=== PATIENT | female | born 1955 ===

== ENCOUNTER → 2017-01-25 | Outpatient (CLI) | payer OTHER ==
[~2017-01-25] VITALS: Ht 170.2 cm; Wt 68.0 kg
[~2017-01-25] MED LIST: HYDROCODONE-AP1 EAC6 PO; PROGESTERONE100 MG PO; PROZAC10 MG PO
--- NOTE | ~2017-01-25 | HPC ---
[facility] [place] [address] PAIN MANAGEMENT CONSULTATION Name: INGA KAUR Room #: REG TIFF M.R.#: [id number] Admission: 01/25/17 Attend Phys: Leslye Fagan MD Discharge: Date of : 57 Report #: [id number] THIS REPORT FOR: //name// CC: LORENZA Fagan DATE OF SERVICE: 01/25/2017 PRIMARY CARE PHYSICIAN: Lorenza Flores MD CHIEF COMPLAINT: Pain in the neck with pain down into both arms. HISTORY OF PRESENT ILLNESS: The patient is a 61-year-old female who has been referred to the pain clinic for evaluation. The patient states that she is experiencing pain and discomfort with numbness, achiness, radiating from her neck, back, shoulders, and shooting down into her arms with numbness and tingling sensation in her fingers. She states that she had an MRI, which shows that she has some problems with the disk in her neck. She has noted pain and discomfort, most problematic since 2016 in October. She describes this as periodic, shooting, aching and rates it as a 3-4 at this juncture. She works at a [employer] store where she was required to do quite a bit of heavy lifting and moving. This does exacerbate her discomfort. ALLERGIES: No known drug allergies. MEDICATIONS: Hydrocodone 5/325 one p.o. q. 6 hours p.r.n. pain, progesterone 100 mg daily, Prozac 10 mg daily. PAST MEDICAL HISTORY: Generally good health. PAST SURGICAL HISTORY: Cholecystectomy in 1999. 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 Height 5 feet 7 inches, weight 150 pounds. SOCIAL HISTORY: The patient has smoked for 40 years. Smokes 1/3 of a pack of cigarettes per day, 2-4 alcoholic beverages per week. REVIEW OF SYSTEMS: Questionnaire 14 points in the chart reveal generally good health, fatigue and weakness, wears glasses. Otherwise, unremarkable. LABORATORY DATA: MRI of the cervical spine dated 01/16/2007 reveals: 1. There was a straightening of the cervical spine with loss of normal cervical lordosis curvature. No evidence of spondylolisthesis. 2. C3-C4 mild broad-based posterior disk osteophyte formation, resulting in [facility] [address] [place] [address] PAIN MANAGEMENT CONSULTATION Name: INGA KAUR Room #: REG [facility] Wili.#: [id number] Admission: 01/25/17 Attend Phys: Leslye Fagan MD Discharge: Date of : 57 Report #: [id number] minimal flattening of the central thecal sac. Central canal stenosis. 0.9 cm AP. 3. C4-C5, there is minimal broad-based posterior disk osteophyte medication. This results in minimal flattening of the ventral thecal sac. AP diameter 0.9. 4. C5-C6, there is broad-based posterior disk osteophyte formation, flattening of the ventral thecal sac and resulting in flattening of the ventral surface of the cervical spinal cord. 5. Bilateral uncovertebral osteophyte formation noted, right greater than left. Resulting in a moderate right and mild to moderate left foraminal narrowing. There is moderate central canal stenosis. AP diameter 0.8. 6. C6-C7 broad-based posterior disk osteophyte formation resulting in flattening of the ventral thecal sac. Flattening of the ventral surface of the cervical spinal cord. Left osteophyte formation resulting in a esap-me-[id number] left foraminal narrowing. The thecal sac 0.8 cm AP diameter. PHYSICAL EXAMINATION: The patient has pain and discomfort in the left and right cervical areas. Height 170 cm, weight 68 kilograms. BMI 23. The patient notes increased pain and discomfort in her neck when she sits and looks down as though she was reading a book. She notes that at night now she has to hold the book up and looking in an upward position when reading, otherwise it exacerbates her discomfort. She notes pain and discomfort radiating down into both arms as well as in both hands with numbness and tingling. IMPRESSION: Cervical radiculopathy. RECOMMENDATION: We discussed treatment options with the patient. Risks and benefits of an epidural steroid injection were discussed. Possible complications were reviewed. The patient elects to proceed with an injection. PROCEDURE NOTE: The patient was placed in the prone position. Fluoroscopy was used to identify the C7-T1 interspace. This area had been sterilely prepped with Betadine and infiltrated with 0.25% bupivacaine. Total of 80 mg Depo-Medrol, 40 mg triamcinolone and 2 mL of 0.25% bupivacaine was injected. The patient tolerated the procedure well. There were no complications. She will follow up in the future as needed. We would like to thank you for letting us participate in her care. We hope she continues to improve. <ELECTRONICALLY SIGNED> By: Leslye Fagan MD 01/31/17 0914 [id number] 0000 Leslye Fagan MD /nt
[2017-01-25 09:53] VITALS: BP 121/67
== END | disposition home or self-care (01) ==
LOC: PAIN 06:04
DX: M54.12 Radiculopathy, cervical region (principal); F17.210 Nicotine dependence, cigarettes, uncomplicated; Z90.49 Acquired absence of other specified parts of digestive tract

== ENCOUNTER → 2017-02-15 | Outpatient (CLI) | payer OTHER ==
[~2017-02-15] VITALS: Ht 170.2 cm; Wt 70.3 kg
[~2017-02-15] MED LIST changes: +ALEVE220 MG PO
--- NOTE | ~2017-02-15 | HPC ---
[facility] [place] [address] PAIN MANAGEMENT CONSULTATION Name: INGA KAUR Room #: REG TIFF Wili.#: [id number] Admission: 02/15/17 Attend Phys: Leslye Fagan MD Discharge: Date of : 57 Report #: [id number] THIS REPORT FOR: //name// CC: Kiara Fagan DATE OF SERVICE: 02/15/2017 FOLLOWUP COMPLAINT: Here for another injection. It is greater than 50% better, but still sore and painful. HISTORY: The patient is a 61-year-old female who has been seen in the pain clinic because of cervical radiculopathy. She underwent an epidural steroid injection at the last visit. She notes that her pain improved quite a bit. She still has some pain and discomfort down into her left arm, which is shooting, aching and sharp with radiation. She feels that another injection would prove beneficial and would like to proceed. She had no complication from the last injection. PHYSICAL EXAMINATION: Blood pressure 128/81, pulse 79, respiratory rate 14, room air saturation 98%. The patient has pain and discomfort in the left arm with some radiation, numbness, tingling and weakness. IMPRESSION: Cervical radiculopathy, improved after the first epidural steroid injection. The patient would like to proceed with another. PROCEDURE NOTE: The patient was placed in the prone position. Fluoroscopy was used to identify the C7-T1 interspace. This area had been sterilely prepped with Betadine and infiltrated with 0.25% bupivacaine. Total of 80 mg Depo-Medrol, 40 mg triamcinolone and 2 mL of 0.25% bupivacaine was injected. The patient tolerated the procedure well. There were no complications. We would like to thank you for letting us participate in her care. We hope she continues to improve. By: [id number] Leslye Fagan MD /nt
[2017-02-15 14:16] VITALS: BP 128/81
== END | disposition home or self-care (01) ==
LOC: PAIN 07:14
DX: M54.12 Radiculopathy, cervical region (principal); F17.210 Nicotine dependence, cigarettes, uncomplicated